=== PATIENT | male | born 1975 | race African-American/Black ===

== ENCOUNTER 2020-01-01 11:24 | Emergency (ER) | payer SELFPAY ==
[~2020-01-01] VITALS: Ht 167.6 cm; Wt 72.1 kg
[2020-01-01] MEDS ORDERED: MORPHINE SULFATE 4 MG/ML, 1ML IVPush PRN (12:00)
[2020-01-01] MEDS ORDERED: ONDANSETRON 2MG/ML, 2ML IVPush ONE (12:00)
[2020-01-01] MEDS ORDERED: SODIUM CHLORIDE FLUSH 10ML SYR IVF ONE (12:00)
[2020-01-01] MEDS ORDERED: ONDANSETRON 2MG/ML, 2ML ONE (12:11)
[2020-01-01] MEDS ORDERED: MORPHINE SULFATE 4 MG/ML, 1ML ONE (12:11)
--- NOTE | 2020-01-01 12:26 | NUR ---
FIRST CONTACT WITH PT. PT WORSENING LBP RAD TO BLE (LLE>RLE) AFTER STEROID INJ TUE, + NUMB/TING LLE, HX MULT BACK SURG. PT'S AOX4. RESPS EVEN AND UNLABORED. PT DENIES ANY OTHER SX.
[2020-01-01 12:27] LABS: MEAN CORPUSCULAR HEMOGLOBIN 29.3 pg (27.5-34.5); MEAN CORPUSCULAR HGB CONC 32.9 g/dL (33.2-36.2); MEAN CORPUSCULAR VOLUME 89.2 fL (81-97); MEAN PLATELET VOLUME 6.8 fL (7.4-10.4); PLATELET COUNT 203 x10^3/uL (130-400); RED BLOOD COUNT 4.27 x10^6/uL (4.38-5.82); RED CELL DISTRIBUTION WIDTH 13.5 % (9.4-14.8)
[2020-01-01 12:44] LABS: ALBUMIN 3.5 g/dL (3.4-5.0); ANION GAP 4 mmol/L (5-15); CALCIUM 8.4 mg/dL (8.5-10.1); CHLORIDE 115 mmol/L (98-107)
[2020-01-01 12:45] LABS: CREATININE 0.94 mg/dL (0.7-1.3)
[2020-01-01 12:47] LABS: HCT (SEDRATE) 38.1 % (39.2-51.8)
--- NOTE | 2020-01-01 12:48 | NUR ---
PIV EST ON R HAND. PT MEDICATED PER EMAR. PT TOLERATED WELL.
[2020-01-01 12:55] LABS: MD YES
[2020-01-01 12:57] LABS: <PLATELET ESTIMATE> ADEQUATE; <PLT MORPHOLOGY> NORMAL PLT MORPH; <RBC MORPHOLOGY> NORMAL; BASOS#(MANUAL) 0.07 x10^3/uL (0-0.1); BASOS% (MANUAL) 1 % (0-1); EOS#(MANUAL) 0.14 x10^3/uL (0.0-0.4); EOS% (MANUAL) 2 % (1-7); LYMPH#(MANUAL) 2.28 x10^3/uL (1-3.4); LYMPHS% (MANUAL) 33 % (22-44); MONOS#(MANUAL) 0.35 x10^3/uL (0.3-2.7); MONOS% (MANUAL) 5 % (2-9); SEG#(MANUAL) 4.07 x10^3/uL (1.8-6.8); SEGS% (MANUAL) 59 % (42-75)
--- NOTE | 2020-01-01 13:07 | NUR ---
BREAK RN NOTE: REPORT RECEIVED FROM TONIE WILKINSON. PT REPORTS PERSISTENT BILATERAL LOWER BACK PAIN LEVEL 9/10 S/P MORPHINE, EDSADIE ABRAHAM NOTIFIED. DILAUDID ORDER RECEIVED. BP AND SPO2 MONITORS IN PLACE, VSS.
[2020-01-01] MEDS ORDERED: HYDROmorphone 1 MG/ML, 1ML INJ ONE ×3 (13:10→16:42)
[2020-01-01] MEDS ORDERED: HYDROmorphone 1 MG/ML, 1ML INJ IV ONE ×3 (13:30→16:30)
--- NOTE | 2020-01-01 13:40 | NUR ---
break RN note: upon assessment, pt's left arm and grasp is weaker than right, left leg is weaker than right, left leg has diminished sensation. pt states left leg has been weak and diminished sensation x 5 days, pt states he does not feel left arm is weaker than right. YANIRA Hensley notified. Pt reports his pain level is now down from 9/10 to 8/10, states that he is claustrophobic and requires sedation, YANIRA Hensley notified. bp and spo2 monitors in place. call light in readch. report given back to TONIE Kumar.
[2020-01-01] MEDS ORDERED: KETOROLAC 30 MG/1 ML ONE (13:55)
[2020-01-01] MEDS ORDERED: LORazepam 1MG TABLET ONE (13:56)
[2020-01-01] MEDS ORDERED: KETOROLAC 30 MG/1 ML IVPush ONE (14:00)
[2020-01-01] MEDS ORDERED: LORazepam 1MG TABLET PO ONE (14:00)
--- NOTE | 2020-01-01 14:01 | NUR ---
PT MEDICATED PER EMAR. PT TOLERATED WELL.
--- NOTE | 2020-01-01 14:11 | NUR ---
PT TO MRI AT THIS TIME.
[2020-01-01] MEDS ORDERED: GADOTERATE 7.5 MMOL/15 ML SYR ONE (14:41)
--- NOTE | 2020-01-01 15:37 | NUR ---
PT BACK TO ROOM FROM MRI. PT REQUESTING PAIN MEDS AT THIS TIME.
--- NOTE | 2020-01-01 15:47 | NUR ---
PT MEDICATED PER EMAR. PT TOLERATED WELL.
[2020-01-01 15:48] VITALS: BP 133/100
--- NOTE | 2020-01-01 16:23 | NUR ---
EDMD AT BEDSIDE TO EXPLAIN ALL RESULTS AT THIS TIME.
--- NOTE | 2020-01-01 16:44 | NUR ---
PT MEDICATED PER EMAR FOR PAIN. PT TOLERATED WELL.
--- NOTE | 2020-01-01 17:07 | NUR ---
Patient given discharge instructions and they have confirmed that they understand the instructions. Patient ambulatory with steady gait.
== END 2020-01-01 17:08 | disposition home or self-care (01) ==
LOC: ED 15:29
DX: S39.012A Strain of muscle, fascia and tendon of lower back, initial encounter (principal); M51.16 Intervertebral disc disorders with radiculopathy, lumbar region; R00.0 Tachycardia, unspecified; X58.XXXA Exposure to other specified factors, initial encounter; Y93.89 Activity, other specified; Y92.89 Other specified places as the place of occurrence of the external cause; Y99.8 Other external cause status
CPT/HCPCS: 36415; 72158; 80048; 82040; 85025; 85651; 96374; 96375; 96376; 99285; A9575; J1170; J1885; J2270; J2405